=== PATIENT | female | born 1995 | race Asian ===

== ENCOUNTER 2017-02-13 08:17 | Emergency (ER) | payer OTHER ==
[2017-02-13 08:24] VITALS: TEMP 97.7; O2SAT 95
--- NOTE | 2017-02-13 08:58 | EDPHY ---
H & P Time Seen by Provider: 02/13/17 08:49 HPI/ROS: CHIEF COMPLAINT: Jaw dislocation HISTORY OF PRESENT ILLNESS: Patient is a 22-year-old female who presents emergency department after dislocating her jaw. She states that she has dislocated jaw a total of 3 times. Her mother also has the same problem. She was yawning this morning when she felt her jaw popped. She is now unable to close her jaw. She has mild discomfort. No other trauma. No numbness or tingling REVIEW OF SYSTEMS: My complete review of systems is negative except as mentioned in the HPI. Past Medical/Surgical History: Previous job dislocation Past surgical history: Negative Smoking Status: Never smoked Physical Exam: Vitals noted General Appearance: Alert and no distress. Head: Pupils equal. Normal. The patient's jaw is open. She has no tenderness palpation over the TMJs bilaterally. There is no significant swelling. Her face otherwise appears normal with no swelling. Respiratory: No respiratory distress. Cardiac: regular rate and rhythm. Extremities: Full range of motion, normal appearing. Skin: No rashes or lesions. Neuro: Alert. Normal mood and affect. Constitutional: Initial Vital Signs Temperature (C) 36.5 C 02/13/17 08:21 Heart Rate 112 H 02/13/17 08:21 Respiratory Rate 17 02/13/17 08:21 Blood Pressure 122/78 H 02/13/17 08:21 O2 Sat (%) 95 02/13/17 08:21 O2 Delivery Mode Room Air Allergies/Adverse Reactions: No Known Allergies Allergy (Unverified 02/13/17 08:21) Home Medications: Medication Instructions Recorded NK [No Known Home Meds] 02/13/17 Medical Decision Making ED Course/Re-evaluation: In the emergency department I discussed possible etiologies with the patient. She states that they were able to get her jaw in previously in the emergency department without sedation. She consented to manual manipulation of her jaw. Using direct pressure and traction I was able to relocate her jaw without difficulty. I rechecked the patient postprocedure. She was neurovascularly intact distally. She was able to range her jaw with only mild discomfort. She had no TMJ or bony tenderness to palpation. She will follow up with maxillofacial surgeon. Differential Diagnosis: My differential includes but is not limited to fracture, dislocation, muscle spasm Departure - Departure Disposition: Home, Routine, Self-Care Clinical Impression: Dislocation, jaw, open Qualifiers: Encounter type: initial encounter Qualified Code(s): S03.00XA - Dislocation of jaw, unspecified side, initial encounter Condition: Good Instructions: Mandibular Dislocation (ED) Additional Instructions: Avoid opening your mouth widely over the next few days. Follow up with the jaw specialist. Referrals: Santhosh Cheney MD [Medical Doctor] - 5-7 days, call for appt.
[2017-02-13 09:30] VITALS: BP 123/82; PULSE 95; RESP 16
== END 2017-02-13 09:30 | disposition home or self-care (01) ==
DX: S03.00XA Dislocation of jaw, unspecified side, initial encounter (principal); X58.XXXA Exposure to other specified factors, initial encounter